=== PATIENT | female | born 1985 | race Caucasian/White ===

== ENCOUNTER 2019-10-21 10:41 | Inpatient (IN) | payer OTHER ==
[~2019-10-21] VITALS: Ht 165.1 cm; Wt 91.6 kg
[2019-11-13] MEDS ORDERED: PRENATAL TABLE1 EAC1 PO (16:51)
== END 2019-11-17 15:21 | disposition home or self-care (01) | DRG 807 ==
LOC: LDR 11-13 15:39 → SURG-SUITE 11-14 18:26 → OB/GYN 11-16 07:15 → SURG-SUITE 11-17 15:21
PROVIDERS: ADMIT Obstetrics & Gynecology; ATTEND Obstetrics & Gynecology
PROC: 4A1HXCZ Monitoring of Products of Conception, Cardiac Rate, External Approach (ICD-10-PCS; 2019-11-13)
PROC: 10E0XZZ Delivery of Products of Conception, External Approach (ICD-10-PCS; principal; 2019-11-14)
PROC: 0KQM0ZZ Repair Perineum Muscle, Open Approach (ICD-10-PCS; 2019-11-14)
DX: O70.1 Second degree perineal laceration during delivery (principal); Z37.0 Single live birth; Z20.828 Contact with and (suspected) exposure to other viral communicable diseases; Z3A.39 39 weeks gestation of pregnancy

== ENCOUNTER 2019-11-12 10:20 | Outpatient (CLI) | payer OTHER ==
[2019-11-13] MEDS ORDERED: PRENATAL TABLE1 EAC1 PO (16:51)
== END 2019-11-12 11:02 | disposition home or self-care (01) ==
LOC: NST 10:20
PROVIDERS: ATTEND Obstetrics & Gynecology
DX: Z34.83 Encounter for supervision of other normal pregnancy, third trimester (principal)

== ENCOUNTER 2021-07-09 15:25 | Outpatient (CLI) | payer OTHER ==
[~2021-07-09 15:25] MED LIST: PRENATAL TABLE1 EAC1 PO
== END 2021-07-09 16:16 | disposition home or self-care (01) ==
LOC: NST 15:25
PROVIDERS: ATTEND Obstetrics & Gynecology
DX: Z34.82 Encounter for supervision of other normal pregnancy, second trimester (principal)

== ENCOUNTER 2021-09-30 00:57 | Inpatient (IN) | payer OTHER ==
[~2021-09-30] VITALS: Ht 165.1 cm; Wt 97.5 kg
[2021-09-30] MEDS ORDERED: PEPCID AC20 MG PO (01:18)
[2021-09-30] MEDS ORDERED: PANADOL EXTRA500 MG PO (01:20)
[2021-09-30] MEDS ORDERED: ZYRTEC10 MG PO (02:07)
== END 2021-10-01 09:19 | disposition home or self-care (01) | DRG 833 ==
LOC: OB/GYN 00:57 → LDR 00:57 → OB/GYN 08:06
PROVIDERS: ADMIT Obstetrics & Gynecology Maternal & Fetal Medicine; ATTEND Obstetrics & Gynecology Maternal & Fetal Medicine
PROC: 4A1HXCZ Monitoring of Products of Conception, Cardiac Rate, External Approach (ICD-10-PCS; principal; 2021-09-30)
DX: O60.03 Preterm labor without delivery, third trimester (principal); Z3A.34 34 weeks gestation of pregnancy; Z20.822 Contact with and (suspected) exposure to COVID-19

== ENCOUNTER 2021-10-27 13:15 | Inpatient (IN) | payer OTHER ==
[~2021-10-27] VITALS: Ht 165.1 cm; Wt 99.8 kg
[~2021-10-27 13:15] MED LIST changes: +PANADOL EXTRA500 MG PO; +PEPCID AC20 MG PO; +ZYRTEC10 MG PO
== END 2021-11-05 14:13 | disposition home or self-care (01) | DRG 807 ==
LOC: LDR 11-03 05:31 → OB/GYN 11-03 16:47 → LDR 11-07 13:15
PROVIDERS: ADMIT Obstetrics & Gynecology; ATTEND Obstetrics & Gynecology
PROC: 10E0XZZ Delivery of Products of Conception, External Approach (ICD-10-PCS; principal; 2021-11-03)
PROC: 0KQM0ZZ Repair Perineum Muscle, Open Approach (ICD-10-PCS; 2021-11-03)
PROC: 4A1HXCZ Monitoring of Products of Conception, Cardiac Rate, External Approach (ICD-10-PCS; 2021-11-03)
DX: O70.1 Second degree perineal laceration during delivery (principal); Z37.0 Single live birth; Z3A.39 39 weeks gestation of pregnancy; Z20.822 Contact with and (suspected) exposure to COVID-19